=== PATIENT | female | born 1985 | race Hispanic/Latino ===

== ENCOUNTER 2025-02-26 17:33 | Emergency (ER) | payer BC ==
[2025-02-26 19:13] LABS: #Basophils 0.10 10x3/uL (0.0-0.2); #Eosinophils 0.57 10x3/uL (0.0-0.7); #Monocytes 0.72 10x3/uL (0.11-0.59); #Neutrophils 7.25 10x3/uL (1.40-6.50); %Basophils 0.8 % (0.0-1.0); %Eosinophils 4.5 % (0.0-10.0); %Lymphocytes 30.8 % (21.0-51.0); %Monocytes 5.7 % (0.0-10.0); %Neutrophils 57.8 % (42.0-75.0); Hematocrit 40.6 % (36.0-47.0); Hemoglobin 13.0 g/dL (12.0-16.0); Mean Corpuscular Hemoglobin 29.1 pg (27.0-31.0); Mean Corpuscular Volume 91.0 fL (78.0-98.0); Platelet Count 274 10x3/uL (130-400); Red Blood Cell (RBC) Count 4.46 mill/uL (4.20-5.40); White Blood Cell (WBC) Count 12.55 10x3/uL (4.8-10.8)
[2025-02-26] MEDS ORDERED: Dexamethasone 10 MG/ML VIAL ONE (19:31)
[2025-02-26 19:42] LABS: ALT (SGPT) 81 U/L (Less than 34); AST (SGOT) 34 U/L (11-34); Albumin 4.1 g/dL (3.1-4.5); Alkaline Phosphatase 48 U/L (40-110); Anion Gap 15 mmol/L (10-20); BUN (Urea Nitrogen) 12 mg/dL (7.0-18.7); Bilirubin, Total 0.3 mg/dL (0.3-1.2); Calc. Creatinine Clearance 0 mL/min (70-130); Calcium 8.6 mg/dL (7.8-10.44); Carbon Dioxide 19 mmol/L (22-29); Chloride 110 mmol/L (98-107); Globulin 3.3 g/dL (2.4-3.5); Glucose 103 mg/dL (70-105); Potassium 3.5 mmol/L (3.5-5.1); Sodium 140 mmol/L (136-145)
== END 2025-02-26 22:49 | disposition home or self-care (01) ==
LOC: ERS 17:33
DX: J45.909 Unspecified asthma, uncomplicated (principal); Z79.51 Long term (current) use of inhaled steroids; Z79.899 Other long term (current) drug therapy
CPT/HCPCS: 36415; 71046; 80053; 85025; 87081; 87428; 87430; 96372; J1100